=== PATIENT | male | born 1985 | race Asian ===

== ENCOUNTER 2019-03-22 15:45 | Emergency (ER) | payer OTHER ==
[~2019-03-22] VITALS: Ht 167.6 cm; Wt 73.5 kg
--- NOTE | 2019-03-22 15:55 | NUR ---
Pt ambulated to room with EDT.
--- NOTE | 2019-03-22 16:08 | NUR ---
Dr. Vinson at bedside to evaluate pt.
--- NOTE | 2019-03-22 16:15 | NUR ---
Pt ambulated to XR, with tech.
--- NOTE | 2019-03-22 16:47 | NUR ---
Labs drawn, pt resting on lucius.
[2019-03-22 16:51] LABS: BASOPHILS # (AUTO) 0.02 x10^3/uL (0-0.1); BASOPHILS % (AUTO) 1 % (0-1); EOSINOPHILS % (AUTO) 3 % (1-7); LYMPHOCYTES # (AUTO) 1.36 x10^3/uL (1-3.4); LYMPHOCYTES % (AUTO) 34 % (22-44); MD NO; MEAN CORPUSCULAR HEMOGLOBIN 31.2 pg (27.5-34.5); MEAN CORPUSCULAR HGB CONC 34.1 g/dL (33.2-36.2); MEAN CORPUSCULAR VOLUME 91.4 fL (81-97); MEAN PLATELET VOLUME 8.4 fL (7.4-10.4); MONOCYTES # (AUTO) 0.22 x10^3/uL (0.2-0.8); MONOCYTES % (AUTO) 6 % (2-9); NEUTROPHILS # (AUTO) 2.31 x10^3/uL (1.8-6.8); NEUTROPHILS % (AUTO) 58 % (42-75); PLATELET COUNT 184 x10^3/uL (130-400); RED BLOOD COUNT 5.32 x10^6/uL (4.38-5.82); RED CELL DISTRIBUTION WIDTH 11.9 % (9.4-14.8)
[2019-03-22 17:02] LABS: ALANINE AMINOTRANSFERASE 37 U/L (12-78); ANION GAP 5 mmol/L (5-15); CALCIUM 8.7 mg/dL (8.5-10.1); CHLORIDE 106 mmol/L (98-107); CREATININE 1.01 mg/dL (0.7-1.3)
[2019-03-22 17:06] LABS: ALKALINE PHOSPHATASE 55 U/L (45-117); BILIRUBIN,TOTAL 0.5 mg/dL (0.2-1.0); TOTAL PROTEIN 7.2 g/dL (6.4-8.2); TROPONIN I < 0.015 ng/mL (0.000-0.045)
--- NOTE | 2019-03-22 17:30 | NUR ---
Pt resting on gurmisa, awaiting speaking with MD about ED findings and POC.
[2019-03-22 18:09] VITALS: BP 108/71
--- NOTE | 2019-03-22 18:11 | NUR ---
Patient/Caregiver given discharge instructions and they have confirmed that they understand the instructions. Patient ambulatory with steady gait.
== END 2019-03-22 18:12 | disposition home or self-care (01) ==
LOC: ED 16:04
DX: R07.89 Other chest pain (principal); G43.909 Migraine, unspecified, not intractable, without status migrainosus; E78.5 Hyperlipidemia, unspecified; G89.29 Other chronic pain; I95.9 Hypotension, unspecified
CPT/HCPCS: 36415; 71046; 80053; 84484; 85025; 93005; 99284